=== PATIENT | female | born 1990 | race Caucasian/White ===

== ENCOUNTER 2022-03-04 15:26 | Emergency (ER) | payer OTHER ==
[~2022-03-04] VITALS: Ht 175.3 cm; Wt 108.9 kg
[2022-03-04 15:35] VITALS: BP 147/106
[2022-03-04] MEDS ORDERED: NACL 0.9% 1,000 ML IV ONE (15:35)
[2022-03-04] MEDS ORDERED: fentaNYL citrate 0.05 MG/ML VIAL IVP ONE (15:35)
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
[2022-03-04 16:01] LABS: BASOPHILS # (AUTO) 0.1 K/uL (0.00-0.22); BASOPHILS % (AUTO) 0.7 % (0.0-2.0); EOSINOPHILS # (AUTO) 0.6 K/uL (0-0.4); EOSINOPHILS % (AUTO) 4.3 % (0.0-4.0); HEMATOCRIT 41.6 % (36-48); LYMPHOCYTES # (AUTO) 3.8 K/uL (2.5-16.5); LYMPHOCYTES % (AUTO) 28.8 % (20.5-51.1); MEAN CORPUSCULAR HEMOGLOBIN 29 pg (27-31); MEAN CORPUSCULAR HGB CONC 34 g/dL (33-37); MEAN CORPUSCULAR VOLUME 86.8 fL (80-94); MONOCYTES # (AUTO) 0.7 K/uL (0.8-1.0); MONOCYTES % (AUTO) 5.3 % (1.7-9.3); NEUTROPHILS % (AUTO) 60.9 % (42.2-75.2); PLATELET COUNT (AUTO) 376 K/uL (140-450); RED BLOOD CELL COUNT(AUTO) 4.79 MIL/uL (4.20-5.40); RED CELL DISTRIBUTION WIDTH 12.5 % (11.6-13.7); WHITE BLOOD COUNT (AUTO) 13.1 K/uL (4.8-10.8)
[2022-03-04 16:27] LABS: ANION GAP 11.6 (8-16); CARBON DIOXIDE 26.1 mmol/L (21-32); CREATININE 0.8 mg/dL (0.6-1.3); POTASSIUM 3.7 mmol/L (3.5-5.1); TOTAL BILIRUBIN 0.2 mg/dL (0.0-1.0)
--- NOTE | 2022-03-04 17:19 | NUR ---
BACK FROM CT.
[2022-03-04] MEDS ORDERED: CYCL-711 PO (17:52)
[2022-03-04] MEDS ORDERED: IBUP-1842 PO (17:52)
[2022-03-04] MEDS ORDERED: DICL100G5 TP (17:52)
[2022-03-04 18:16] VITALS: BP 147/106
--- NOTE | 2022-03-04 18:17 | NUR ---
Patient discharged with v/s stable. Written and verbal after care instructions given and explained. Patient alert, oriented and verbalized understanding of instructions. Ambulatory with steady gait. All questions addressed prior to discharge. ID band removed. Patient advised to follow up with PMD. Rx of FLEXERIL, IBUPROFEN, AND DICLOFENAC given. Patient educated on indication of medication including possible reaction and side effects. Opportunity to ask questions provided and answered.
== END 2022-03-04 18:17 | disposition home or self-care (01) ==
LOC: MED 15:26
DX: S20.219A Contusion of unspecified front wall of thorax, initial encounter (principal); S30.1XXA Contusion of abdominal wall, initial encounter; M25.552 Pain in left hip; M54.50 Low back pain, unspecified; V49.49XA Driver injured in collision with other motor vehicles in traffic accident, initial encounter; Y93.89 Activity, other specified; Y92.89 Other specified places as the place of occurrence of the external cause; Y99.8 Other external cause status
CPT/HCPCS: 36415; 71045; 71260; 72170; 74177; 80053; 81002; 81025; 84702; 85025; 96360; 99285; J7030; Q9967